=== PATIENT | female | born 1940 | race Two or more races ===

== ENCOUNTER 2018-12-10 10:55 | Emergency (ER) | payer OTHER ==
[~2018-12-10] VITALS: Ht 157.5 cm; Wt 65.8 kg
[~2018-12-10 10:55] MED LIST: DEXILANT; HYZAAR 100-121 UDTAB PO; INTESTINEX1 CA1 PO; INTESTINEX1 CAP PO; SYMAX DUOT0.375 MG/B PO; ZOFRAN4 MG
[2018-12-10] MEDS ORDERED: COZAAR100 MG (11:14)
[2018-12-10] MEDS ORDERED: PREVACID30 M1 (11:14)
[2018-12-10] MEDS ORDERED: NORVASC5 MG (11:15)
[2018-12-10] MEDS ORDERED: GABAPENTIN100 MG (11:16)
== END 2018-12-10 14:42 | disposition home or self-care (01) ==
LOC: ER 10:55
DX: R05 Cough (principal)

== ENCOUNTER 2023-04-22 10:00 | Outpatient (CLI) | payer OTHER ==
[~2023-04-22 10:00] MED LIST changes: +COZAAR100 MG; +GABAPENTIN100 MG; +NORVASC5 MG; +PREVACID30 M1
== END 2023-04-22 10:03 | disposition home or self-care (01) ==
LOC: RX STUDY 10:00
PROVIDERS: ATTEND Urology
DX: N39.46 Mixed incontinence (principal); N81.10 Cystocele, unspecified
CPT/HCPCS: 51600; 74455; A9698

== ENCOUNTER 2023-04-29 06:19 | Emergency (ER) | payer OTHER ==
[~2023-04-29] VITALS: Ht 157.5 cm; Wt 62.1 kg
== END 2023-04-29 10:06 | disposition home or self-care (01) ==
LOC: ER 06:19
DX: N30.80 Other cystitis without hematuria (principal); Z88.0 Allergy status to penicillin; Z88.8 Allergy status to other drugs, medicaments and biological substances; I10 Essential (primary) hypertension

== ENCOUNTER 2023-05-04 07:18 | Emergency (ER) | payer OTHER ==
[~2023-05-04] VITALS: Ht 157.5 cm; Wt 62.1 kg
[2023-05-04] MEDS ORDERED: CIPROFLOXACIN500 MG PO (07:31)
[2023-05-04] MEDS ORDERED: FAMOTIDINE40 MG PO (07:32)
== END 2023-05-04 09:40 | disposition home or self-care (01) ==
LOC: ER 07:18
DX: G57.01 Lesion of sciatic nerve, right lower limb (principal); M47.897 Other spondylosis, lumbosacral region; I10 Essential (primary) hypertension; E78.00 Pure hypercholesterolemia, unspecified; K57.30 Diverticulosis of large intestine without perforation or abscess without bleeding; Z88.8 Allergy status to other drugs, medicaments and biological substances